=== PATIENT | male | born 1935 | race Caucasian/White ===

== ENCOUNTER 2016-12-05 10:01 | Observation (INO) | payer MEDICARE, OTHER ==
[~2016-12-05] VITALS: Ht 177.8 cm; Wt 117.0 kg
[~2016-12-05 10:01] MED LIST: AREDS PO; B-12 PO; DABI150C PO; ERGO500017 PO; FINA5TAB4 PO; FLAX1000 PO; LEVO50TA5 PO; OMEG1CAP12 PO; SENIOR MULTIVITAMIN PO; SIMV5TAB5 PO; TERA10CA3 PO
[2016-12-05] MEDS ORDERED: FENTANYL PF 250 MCG/5ML ONE (13:13)
[2016-12-05] MEDS ORDERED: MIDAZOLAM 1 MG/ML, 5ML ONE (13:14)
[2016-12-05] MEDS ORDERED: ADENOSINE 6 MG/2 ML ONE (14:12)
[2016-12-05] MEDS ORDERED: ISOPROTERENOL 0.2MG/ML, 5ML ONE (14:12)
[2016-12-05] MEDS ORDERED: LIDOCAINE 2%, 20ML ONE (14:12)
[2016-12-05] MEDS ORDERED: OXYcodone 5 MG/5 ML ORAL.SOL UDC ONE (17:31)
[2016-12-05] MEDS ORDERED: ACETAMINOPHEN 650 MG/20.3 ML UDC ONE (17:31)
[2016-12-05] MEDS ORDERED: MEPERIDINE/PF 25MG/0.5ML IVPush PRN (18:00)
[2016-12-05] MEDS ORDERED: hydrALAzine 20 MG/ML, 1ML IV PRN (18:00)
[2016-12-05] MEDS ORDERED: LABETALOL 5MG/ML, 20ML IV PRN (18:00)
[2016-12-05] MEDS ORDERED: ALBUTEROL/IPRATROPIUM 2.5MG/0.5MG, 3 ML NPPB PRN (18:00)
[2016-12-05] MEDS ORDERED: ONDANSETRON 2MG/ML, 2ML IVPush PRN (18:00)
[2016-12-05] MEDS ORDERED: HYDROmorphone 1 MG/ML, 1ML IV PRN (18:00)
[2016-12-05] MEDS ORDERED: FENTANYL PF 100 MCG/2ML IV PRN (18:00)
[2016-12-05] MEDS ORDERED: ACETAMINOPHEN 325 MG TABLET PO PRN ×3 (18:00→19:30)
[2016-12-05] MEDS ORDERED: PROMETHAZINE 25 MG/ML, 1ML IV PRN (18:00)
[2016-12-05] MEDS ORDERED: OXYcodone 5 MG/5 ML ORAL.SOL UDC PO PRN ×2 (18:00)
[2016-12-05] MEDS ORDERED: MIDAZOLAM 1 MG/ML, 2ML IV PRN (18:00)
[2016-12-05 19:00] VITALS: BP 160/82
[2016-12-05] MEDS ORDERED: PLEASE ENTER HEIGHT AND WEIGHT MC SCH ×2 (19:00→21:00)
[2016-12-05] MEDS ORDERED: ZOLPIDEM 5MG TABLET PO PRN (19:30)
[2016-12-05] MEDS ORDERED: HYDROcodone/APAP 5/325 TABLET PO PRN (19:30)
[2016-12-05] MEDS ORDERED: PROMETHAZINE 25 MG/ML, 1ML IM PRN (19:30)
[2016-12-05] MEDS ORDERED: SIMVASTATIN 5 MG TABLET PO SCH (21:00)
[2016-12-05] MEDS: DABIGATRAN 150 MG CAPSULE PO SCH (21:15)
[2016-12-05] MEDS: TERAZOSIN 5MG CAPSULE PO SCH (22:27)
[2016-12-05] MEDS: FINASTERIDE 5 MG TABLET PO SCH (22:27)
[2016-12-06 00:51] VITALS: BP 135/83
[2016-12-06] MEDS ORDERED: LEVOTHYROXINE 50 MCG TABLET PO SCH (06:00)
[2016-12-06 07:01] VITALS: BP 146/84
[2016-12-06] MEDS ORDERED: CYANOCOBALOMIN 100MCG TABLET PO SCH (09:00)
[2016-12-06] MEDS ORDERED: TERAZOSIN 5MG CAPSULE PO SCH (09:00)
[2016-12-06] MEDS ORDERED: MULTIVITAMIN 1 TABLET PO SCH (09:00)
[2016-12-06] MEDS ORDERED: FINASTERIDE 5 MG TABLET PO SCH (09:00)
[2016-12-06] MEDS ORDERED: OMEGA-3/FISH OIL CAPSULE PO SCH (09:00)
[2016-12-06] MEDS ORDERED: ERGOCALCIFEROL 50,000 UNIT CAPSULE PO SCH (09:00)
[2016-12-06] MEDS: DABIGATRAN 150 MG CAPSULE PO SCH (09:16)
[2016-12-06] MEDS: FINASTERIDE 5 MG TABLET PO SCH (09:17)
[2016-12-06] MEDS: TERAZOSIN 5MG CAPSULE PO SCH (09:17)
== END 2016-12-06 13:55 | disposition home or self-care (01) ==
LOC: CACL 10:01 → 5SO 18:29 → CACL 21:48 → 5SO 21:48
PROVIDERS: ADMIT Internal Medicine Cardiovascular Disease; ATTEND Internal Medicine Cardiovascular Disease
DX: I48.92 Unspecified atrial flutter (principal); I10 Essential (primary) hypertension; E78.5 Hyperlipidemia, unspecified; G47.33 Obstructive sleep apnea (adult) (pediatric); I25.10 Atherosclerotic heart disease of native coronary artery without angina pectoris; Z87.891 Personal history of nicotine dependence; Z82.3 Family history of stroke
CPT/HCPCS: 93613; 93621; 93653; 94660; C1730; C1731; C1766; C1894; C2630; G0378; J2250; J3010; J3490; J0153